=== PATIENT | female | born 1980 | race Two or more races ===

== ENCOUNTER 2016-08-20 19:41 | Emergency (ER) | payer SELFPAY ==
[2016-08-20 19:51] VITALS: BP 121/87; BMI 27.1
[2016-08-20 20:34] LABS: BASOPHILS # (AUTO) 0.1 X10^3/uL (0.0-0.1); BASOPHILS % (AUTO) 0.5 % (0.2-1.0); EOSINOPHILS # (AUTO) 0.1 x10^3/uL (0.0-0.2); HEMATOCRIT 44.8 % (36.0-47.0); HEMOGLOBIN 14.8 g/dL (12.0-16.0); LYMPHOCYTES # (AUTO) 4.7 X10^3/uL (1.3-2.9); LYMPHOCYTES % (AUTO) 40.8 % (21.0-51.0); MEAN CORPUSCULAR HEMOGLOBIN 30.2 pg (27.0-34.0); MEAN CORPUSCULAR HGB CONC 33.1 g/dL (33.0-35.0); MEAN CORPUSCULAR VOLUME 91.4 fL (80.0-100.0); MEAN PLATELET VOLUME 9.6 fL (7.4-11.0); MONOCYTES # (AUTO) 1.1 x10^3/uL (0.3-0.8); MONOCYTES % (AUTO) 9.9 % (0.0-13.0); NEUTROPHILS # (AUTO) 5.5 x10^3/uL (2.2-4.8); NEUTROPHILS % (AUTO) 47.8 % (42.0-75.0); PLATELET COUNT 318 X10^3/uL (150.0-450.0); RED BLOOD COUNT 4.91 X10^6/uL (3.5-5.4); RED CELL DISTRIBUTION WIDTH 13.8 % (11.6-16.5); WHITE BLOOD COUNT 11.5 X10^3/uL (3.6-10.0)
[2016-08-20] MEDS ORDERED: ZOFRAN INJ 4 MG VIAL IVP ONE (20:40)
[2016-08-20] MEDS ORDERED: DEMEROL INJ IVP ONE (20:40)
--- NOTE | 2016-08-20 20:40 | ED.ABDFE ---
HPI - Time seen Time seen: 20:30 - PCP Primary Care Physician: valencia - HPI Comment HPI Comment: ABDOMINAL PAIN TIMES 3 DAYS. SHARP, NON RADIATING. STARTED PERIUMBILICAL AREA. NAUSEATED. DIARREA STOOL BUT NONE TODAY. NO FEVER. NO MELENA. - Complaint Chief Complaint Doctors Comments: ABDOMINAL PAIN. Chief Complaint:: abd pain o/s 3 days ago, diarrhea started today. burning sensation inside stomach. patient points to umbilicus when asked exactly where it hurts. - Nurses notes reviewed Nurses Notes Review: Yes - Source History Provided: Family Member, Other - Mode of arrival Mode of Arrival: Ambulatory - Timing Onset of Chief Complaint: 08/17/16 Came on: Suddenly - Duration Duration: Constant Duration: Days - Location Location: Diffuse - Severity Severity: Moderate - Quality Quality: Sharp - Context Onset: Suddenly History of: None - Modifying Worsening Factors: Food - Associated signs and symptoms Associated Signs and Symptoms: Nausea PMH - PMH Past Medical History: Yes Past Medical History: Diabetes Past Surgical History: No - Family History History of Family Medical Conditions: No - Social History Type of Tobacco Use: None Alcohol Use: None Do you use any recreational Drugs:: No Lives With: Spouse Lives Where: Home - infectious screening Have you traveled outside the country in the last 6 months?: No Isolation: Standard ROS - Review of Systems Constitutional: Weakness, Fatigue, Loss of Appetite. negative: Chills, Fever Eyes: No Symptoms Reported ENTM: No Symptoms Reported Respiratoy: No Symptoms Reported Cardiovascular: No Symptoms Reported Gastrointestinal/Abdominal: Abdominal Pain, Diarrhea, Nausea Genitourinary: No Symptoms Reported. negative: Dysuria, Frequency, Hematuria Neurological: No Symptoms Reported. 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) General Appearance: Alert - Head Head Exam: Normal Inspection - Eyes Eye exam: Normal Appearance - ENT ENT Exam: Normal Exam - Neck Neck Exam: Trachea Midline - Chest Chest Inspection: Symmetric Chest Wall Rise - Respiratory Respiratory Exam: Normal Lung Sounds Bilat Respiratory Exam: Bilateral Clear to Auscultation - Cardiovascular Cardiovascular Exam: Regular Rate, Normal Rhythm, Irregular Rhythm - Abdominal Exam Abdominal Exam: Normal Bowel Sounds, Soft, Tenderness Abdominal Tenderness: Diffuse, Moderate - Rectal Rectal Exam: Deferred - Back Back Exam: Normal Inspection - Extremeties Extremities Exam: Normal Inspection - External Exam: Female: Deferred : Speculum Exam (Female): Deferred : Bimanual Exam (female): Deferred - Neurologic Neurological Exam: Alert, Oriented X3 - Psychiatric Psychiatric Exam: Anxious - Skin Skin Exam: Normal Color MDM - Differential Diagnosis Differential Diagnosis- Considerations may include:: Bowel Obstruction, Cholcystitis, Cholelethiasis, Diverticular disease, Gastritus/PUD, Gastroenteritis, Ovarian cyst/torsion, Pancreatitis, Urinary obstruction, Urinary tract infection, Urolithiasis Course - Treatment Treatment: SEE ORDERS - Education/Counseling Education/Counseling: Patient, Education Educated On: Treatment, Diagnosis, Needs for Follow Up ROR - Labs Reviewed Laboratory Results Reviewed?: Yes Result Diagrams: 08/20/16 20:25 08/20/16 20:25 Laboratory: WBC 11.5 X10^3/uL (3.6-10.0) H 08/20/16 20:25 RBC 4.91 X10^6/uL (3.5-5.4) 08/20/16 20:25 Hgb 14.8 g/dL (12.0-16.0) 08/20/16 20:25 Hct 44.8 % (36.0-47.0) 08/20/16 20:25 MCV 91.4 fL (80.0-100.0) 08/20/16 20:25 MCH 30.2 pg (27.0-34.0) 08/20/16 20:25 MCHC 33.1 g/dL (33.0-35.0) 08/20/16 20:25 RDW 13.8 % (11.6-16.5) 08/20/16 20:25 Plt Count 318 X10^3/uL (150.0-450.0) 08/20/16 20:25 MPV 9.6 fL (7.4-11.0) 08/20/16 20:25 Neut % 47.8 % (42.0-75.0) 08/20/16 20:25 Lymph % 40.8 % (21.0-51.0) 08/20/16 20:25 [place] % 9.9 % (0.0-13.0) 08/20/16 20:25 Eos % 1.0 % (0.9-2.9) 08/20/16 20:25 Baso % 0.5 % (0.2-1.0) 08/20/16 20:25 Neut # 5.5 x10^3/uL (2.2-4.8) H 08/20/16 20:25 Lymph # 4.7 X10^3/uL (1.3-2.9) H 08/20/16 20:25 [place] # 1.1 x10^3/uL (0.3-0.8) H 08/20/16 20:25 Eos # 0.1 x10^3/uL (0.0-0.2) 08/20/16 20:25 Baso # 0.1 X10^3/uL (0.0-0.1) 08/20/16 20:25 Absolute Nucleated RBC 0.1 /100WBC 08/20/16 20:25 Sodium 137 mmol/L (136-145) 08/20/16 20:25 Corrected Sodium 146 mmol/L (136-145) H 08/20/16 20:25 Potassium 4.5 mmol/L (3.5-5.1) 08/20/16 20:25 Chloride 100 mmol/L (98-107) 08/20/16 20:25 Carbon Dioxide 24.3 mmol/L (21-32) 08/20/16 20:25 BUN 9 mg/dL (7-18) 08/20/16 20:25 Creatinine 0.88 mg/dL (0.55-1.02) 08/20/16 20:25 Est GFR (MDRD) Af Amer > 60 (>60) 08/20/16 20:25 Est GFR (MDRD) Non-Af > 60 (>60) 08/20/16 20:25 Glucose 476 mg/dL (65-99) H 08/20/16 20:25 Calcium 10.0 mg/dL (8.5-10.1) 08/20/16 20:25 Corrected Calcium TNP 08/20/16 20:25 Total Bilirubin 0.30 mg/dL (0.2-1.0) 08/20/16 20:25 AST 28 Units/L (15-37) 08/20/16 20:25 ALT 36 Units/L (12-78) 08/20/16 20:25 Alkaline Phosphatase 136 Units/L (46-116) H 08/20/16 20:25 Total Protein 8.8 g/dL (6.4-8.2) H 08/20/16 20:25 Albumin 3.9 g/dL (3.4-5.0) 08/20/16 20:25 Globulin 4.9 g/dL (2.5-4.5) H 08/20/16 20:25 Albumin/Globulin Ratio 0.8 Ratio (1.1-2.1) L 08/20/16 20:25 Amylase 25 Units/L (25-115) 08/20/16 20:25 Lipase 132 Units/L (73-393) 08/20/16 20:25 Specimen Type Clean catch urine 08/20/16 21:39 Urine Color Yellow (YELLOW) 08/20/16 21:39 Urine Appearance Clear (CLEAR) 08/20/16 21:39 Urine pH 5.0 (5.0 - 8.0) 08/20/16 21:39 Ur Specific [place] 1.020 (1.000-1.030) 08/20/16 21:39 Urine Protein Negative (NEGATIVE) 08/20/16 21:39 Urine Glucose (UA) 4+ (NEGATIVE) 08/20/16 21:39 Urine Ketones 2+ (NEGATIVE) 08/20/16 21:39 Urine Occult Blood Negative (NEGATIVE) 08/20/16 21:39 Urine Nitrite Negative (NEGATIVE) 08/20/16 21:39 Urine Bilirubin Negative (NEGATIVE) 08/20/16 21:39 Urine Urobilinogen Normal (NORMAL) 08/20/16 21:39 Ur Leukocyte Esterase Negative (NEGATIVE) 08/20/16 21:39 Urine RBC 0-3 /HPF (NEGATIVE) 08/20/16 21:39 Urine WBC 0-3 /HPF (NEGATIVE) 08/20/16 21:39 Ur Squamous Epith Cells Few /HPF (NEGATIVE) 08/20/16 21:39 Urine Bacteria Negative /HPF (NEGATIVE) 08/20/16 21:39 Ur Culture Indicated? No/not indicated 08/20/16 21:39 Acetone, Semi-Quant Negative (NEGATIVE) 08/20/16 20:25 H. pylori IgG Antibody Negative (NEGATIVE) 08/20/16 20:25 - XRAY XRAY Interpreted by: Radiologist XRAY Findings: REPORT DISCUSS WIR TH PATIENT. - Diagnosis Discharge Problem: Cholecystitis Gastritis Qualifiers: Gastritis type: unspecified gastritis Chronicity: acute Gastritis bleeding: without bleeding Qualified Code(s): K29.00 - Acute gastritis without bleeding Abdominal pain Qualifiers: Abdominal location: generalized Qualified Code(s): R10.84 - Generalized abdominal pain Appendicitis Qualifiers: Appendicitis type: acute appendicitis Acute appendicitis type: unspecified acute appendicitis type Qualified Code(s): K35.80 - Unspecified acute appendicitis - Discharge Plan Disposition: 01 HOME, SELF-CARE Condition: Stable Prescriptions: Dicyclomine HCl [Bentyl Cap 10 mg] 10 mg PO TID #15 cap Ranitidine HCl [ZANTAC TAB 150 MG *] 150 mg PO BID #60 tab - Follow ups/Referrals Follow ups/Referrals: [facility],None [Primary Care Provider] - 3 days - Instructions Instructions: Abdominal Pain, Adult, [id number] Additional Instructions: return to ed if worse.
[2016-08-20 20:47] LABS: ALANINE AMINOTRANSFERASE 36 Units/L (12-78); ALBUMIN 3.9 g/dL (3.4-5.0); ALKALINE PHOSPHATASE 136 Units/L (46-116); AMYLASE 25 Units/L (25-115); BLOOD UREA NITROGEN 9 mg/dL (7-18); CARBON DIOXIDE 24.3 mmol/L (21-32); CHLORIDE 100 mmol/L (98-107); COR NA(FOR HYPERGLY) 146 mmol/L (136-145); CREATININE 0.88 mg/dL (0.55-1.02); GLUCOSE 476 mg/dL (65-99); LIPASE 132 Units/L (73-393); SODIUM 137 mmol/L (136-145); TOTAL PROTEIN 8.8 g/dL (6.4-8.2); eGFR BLACK RACES > 60 (>60); eGFR NON BLACK RACES > 60 (>60)
[2016-08-20] MEDS ORDERED: DEMEROL INJ ONE (20:54)
[2016-08-20] MEDS ORDERED: ZOFRAN INJ 4 MG VIAL ONE (20:54)
[2016-08-20 21:04] LABS: ASPARTATE AMINO TRANSFERASE 28 Units/L (15-37)
--- NOTE | 2016-08-20 21:12 | CT ---
CT abdomen and pelvis without contrast Indication: Abdominal pain. Umbilical pain Technique: Helical images through the abdomen and pelvis without contrast. Coronal and sagittal refo rmats provided. Findings: Limited images through lower chest show no acute abnormality. Review of bone windows shows no destructive osseous lesion. Abdomen: The liver is enlarged and fatty. The gallbladder, spleen, adrenal glands, pancreas, stomach and small bowel are normal. The colon is normal. The appendix is normal. Vasculature is free of zeb que. The kidneys show no hydroureteronephrosis or stone. Pelvis: Urinary bladder, rectum, uterus and adnexa show no acute abnormality. Impression: 1. Enlarged fatty liver. Correlate with hepatic biochemical profile. 2. No other acute abnormality to explain the patient's pain. Minimal lumbar spine degenerative byrd es L5-S1. Reported By:
[2016-08-20 21:53] LABS: BILIRUBIN,URINE NEGATIVE (NEGATIVE); BLOOD/HEMOGLOBIN,URINE NEGATIVE (NEGATIVE); GLUCOSE, URINE 4+ (NEGATIVE); KETONES,URINE 2+ (NEGATIVE); LEUKOCYTE ESTERASE ,URINE NEGATIVE (NEGATIVE); NITRITES,URINE NEGATIVE (NEGATIVE); PROTEIN,URINE NEGATIVE (NEGATIVE); UROBILINOGEN,URINE NORMAL (NORMAL)
[2016-08-20 22:04] LABS: APPEARANCE,URINE CLEAR (CLEAR); BACTERIA,URINE NEGATIVE /HPF (NEGATIVE); COLOR,URINE YELLOW (YELLOW); RBC,URINE 0-3 /HPF (NEGATIVE); SQUAMOUS EPITHELIAL CELL,UR FEW /HPF (NEGATIVE)
[2016-08-20] MEDS ORDERED: PROTONIX INJ 40 MG VIAL IVP ONE (23:11)
[2016-08-20] MEDS ORDERED: BENTYL CAP 10 MG PO ONE ×2 (23:12→23:15)
[2016-08-20] MEDS ORDERED: PROTONIX INJ 40 MG VIAL ONE (23:14)
== END 2016-08-20 23:23 | disposition home or self-care (01) ==
LOC: ER 19:41
DX: K81.9 Cholecystitis, unspecified (principal); K29.00 Acute gastritis without bleeding; R10.84 Generalized abdominal pain; K35.80 Unspecified acute appendicitis; K76.0 Fatty (change of) liver, not elsewhere classified
CPT/HCPCS: 36415; 74176; 80053; 81001; 82009; 82150; 83690; 85025; 86677; 96365; 96374; 96375; 99283; A4222; C9113; J2175; J2405